=== PATIENT | male | born 1960 | race Two or more races ===

== ENCOUNTER 2018-05-06 09:40 | Day surgery (SDC) | payer OTHER ==
[2018-04-29 13:47] VITALS: BMI 32.1
[2018-05-06] MEDS ORDERED: LIDOCAINE HCL/PF 2% SDV 5ML VIAL ONE (10:01)
[2018-05-06] MEDS ORDERED: PROPOFOL 20 ML ONE ×2 (10:01)
[2018-05-06 10:50] VITALS: TEMP 98
[2018-05-06 11:30] VITALS: BP 133/80; PULSE 74
--- NOTE | 2018-05-08 15:07 | PATH ---
Surgical Pathology Report Patient Name: JOSETTE RONQUILLO [facility]. Rec. #: [id number] /Age/Gender: 1960 (Age: 57) / M Account: [id number] Location: [facility] Taken: 05/06/2018 Received: 05/06/2018 Reported: 05/08/2018 Physicians: Rinku Anders M.D. Specimen(s) Received A: BX DUODENUM B: BX ANTRUM C: HEPATIC FLEXURE D: DISTAL LEFT COLON Clinical History GERD, family history colon cancer Postoperative diagnosis: Gastritis, duodenitis, hiatal hernia, colon polyps Final Diagnosis A. DUODENUM, BIOPSY: DUODENUM MUCOSA WITH MILD NONSPECIFIC CHRONIC DUODENITIS. NO HISTOLOGIC EVIDENCE OF INTRAEPITHELIAL LYMPHOCYTOSIS. B. ANTRUM, BIOPSY: GASTRIC MUCOSA WITH CHRONIC GASTRITIS. IMMUNOSTAIN FOR H. PYLORI IS NEGATIVE. NEGATIVE FOR INTESTINAL METAPLASIA. C. HEPATIC FLEXURE POLYP, POLYPECTOMY: TUBULAR ADENOMA. D. DISTAL LEFT COLON POLYPS, POLYPECTOMY: TUBULAR ADENOMA. Electronically Signed Jeronimo Dodd M.D. Gross Description A. Received in formalin, labeled "biopsy duodenum" are 2 amrtinez, irregular portions of soft tissue measuring 0.3 and 0.4 cm. in greatest dimension. The specimens are submitted in toto in one cassette. B. Received in formalin, labeled "biopsy antrum" are 2 martinez, irregular portions of soft tissue measuring 0.3 and 0.4 cm. in greatest dimension. The specimens are submitted in toto in one cassette. C. Received in formalin, labeled "polyp hepatic flexure" is a martinez, irregular portion of soft tissue measuring 0.3 cm. in greatest dimension. The specimen is submitted in toto in one cassette. D. Received in formalin, labeled "polyps distal left colon" is a martinez, irregular portion of soft tissue measuring 0.3 cm. in greatest dimension. The specimen is submitted in toto in one cassette. 05/07/201805/07/2018
== END 2018-05-06 11:30 | disposition home or self-care (01) ==
LOC: FASU-ENDO 09:40
PROVIDERS: ATTEND Internal Medicine Gastroenterology
PROC: 0DBL8ZX Excision of Transverse Colon, Via Natural or Artificial Opening Endoscopic, Diagnostic (ICD-10-PCS; 2018-05-06)
PROC: 0DB98ZX Excision of Duodenum, Via Natural or Artificial Opening Endoscopic, Diagnostic (ICD-10-PCS; 2018-05-06)
PROC: 0DB68ZX Excision of Stomach, Via Natural or Artificial Opening Endoscopic, Diagnostic (ICD-10-PCS; 2018-05-06)
PROC: 0DBM8ZX Excision of Descending Colon, Via Natural or Artificial Opening Endoscopic, Diagnostic (ICD-10-PCS; principal; 2018-05-06 10:15)
DX: Z12.11 Encounter for screening for malignant neoplasm of colon (principal); D12.3 Benign neoplasm of transverse colon; D12.4 Benign neoplasm of descending colon; K29.80 Duodenitis without bleeding; K29.50 Unspecified chronic gastritis without bleeding; K44.9 Diaphragmatic hernia without obstruction or gangrene
CPT/HCPCS: 88305-TC; 88342-TC